=== PATIENT | female | born 1955 | race African-American/Black ===

== ENCOUNTER → 2017-03-04 | Outpatient (CLI) | payer MEDICARE, OTHER ==
--- NOTE | 2017-03-04 11:48 | RAD ---
Abdominal ultrasound, 03/04/2017: History: Elevated liver function studies This study was partially compromised by the patient's size. No gallstones are identified. The gallbladder lisa are not thickened. No bile duct dilatation is seen. Only portions of the liver are visible. No hepatic mass is identified. The pancreas and central retroperitoneum including the aorta and inferior vena cava were largely obscured by overlying bowel. The spleen is of normal size. No renal abnormality is detected. No free fluid is evident in the abdomen. IMPRESSION: 1. Suboptimal exam as described above. 2. No acute abdominal abnormality is detected.
== END | disposition home or self-care (01) ==
LOC: US 10:02
PROVIDERS: ATTEND Internal Medicine
DX: R74.8 Abnormal levels of other serum enzymes (principal)
CPT/HCPCS: 76700